=== PATIENT | male | born 1970 | race Caucasian/White ===

== ENCOUNTER 2016-12-24 12:47 | Emergency (ER) | payer OTHER ==
[~2016-12-24] VITALS: Ht 182.9 cm; Wt 136.5 kg
--- NOTE | 2016-12-24 13:09 | EKG ---
[facility] [address] [place] [address] Test Date: 2016-12-24 Test Time: 12:58:57 Pat Name: ETHAN LEON Department: Room: Gender: M Courtroom Reporter: : 1970 Requested By: DIMITRI NAVARRO Order Number: [id number] Reading MD: Measurements Intervals [place] Rate: 96 P: 22 AL: 126 QRS: 3 QRSD: 98 T: 11 QT: 336 QTc: 431 Interpretive Statements SINUS RHYTHM NORMAL ECG RI6.01 Unconfirmed report No previous ECG available for comparison
[2016-12-24 13:26] LABS: BASO % 1 % (0-3); EOS % 0 % (0-3); HEMATOCRIT 42.7 % (39.0-53.0); HEMOGLOBIN 14.7 g/dL (13.0-17.5); LYMPH # 0.6 x10^3/uL (1.0-4.8); LYMPH % 16 % (24-48); MEAN CORPUSCULAR HEMOGLOBIN 31 pg (25-35); MEAN CORPUSCULAR HGB CONC 34 g/dL (31-37); MEAN CORPUSCULAR VOLUME 91 fL (79-100); MONO % 9 % (0-9); NEUT % 73 % (31-73); PLATELET COUNT 145 x10^3/uL (140-400); RED BLOOD COUNT 4.72 x10^6/uL (4.30-5.70); RED CELL DISTRIBUTION WIDTH 12.7 % (11.5-14.5); WHITE BLOOD COUNT 3.9 x10^3/uL (4.0-11.0)
[2016-12-24 13:33] LABS: BILIRUBIN,URINE SMALL (NEG); GLUCOSE,URINE NEGATIVE (NEG); NITRITE,URINE NEGATIVE (NEG); PROTEIN,URINE 30 mg/dL (NEG-TRACE)
[2016-12-24 13:42] LABS: BACTERIA,URINE 0 /HPF (0-FEW); RBC,URINE 0 /HPF (0-2); SQUAMOUS EPITHELIAL CELL,UR MOD /LPF; WBC,URINE OCC /HPF (0-4)
[2016-12-24 13:43] LABS: CALCIUM 8.7 mg/dL (8.5-10.1); CREATININE 0.9 mg/dL (0.7-1.3); GFR 91.3
[2016-12-24 13:51] LABS: ALBUMIN 3.4 g/dL (3.4-5.0); ALBUMIN/GLOBULIN RATIO 0.9 (1.0-1.7); TOTAL BILIRUBIN 0.5 mg/dL (0.2-1.0); TOTAL PROTEIN 7.3 g/dL (6.4-8.2)
--- NOTE | 2016-12-24 15:07 | RAD ---
Chest, 2 views, 12/24/2016: History: Cough The heart size and pulmonary vascularity are normal. No pulmonary infiltrates are seen. There is no evidence of pleural fluid. Mild spurring is present in the spine. IMPRESSION: No acute cardiopulmonary abnormality is detected.
[2016-12-24] MEDS ORDERED: oxyCODONE/APAP 5/325 1 TAB TABLET PO ONE (15:45)
[2016-12-24 15:55] VITALS: BP 142/80
--- NOTE | 2016-12-24 17:48 | ED.ADGEN ---
Past Medical History Past Medical History: No Pertinent History Past Surgical History: Other Additional Past Surgical Histo: SHOULDER Alcohol Use: None Drug Use: None Adult General Chief Complaint Chief Complaint: NEAR SYNCOPE HPI HPI Patient is a 46 year old male presents with arthralgias, myalgias, sweats and malaise. He also reports chronic cough lasting several months. Patient's body aches sweats beginning yesterday. He was briefly seen at [facility] and referred to the emergency department for further evaluation, but decided to wait one day, because he was being stubborn according to the patient and his . Patient's symptoms are gradually improved. He denies feeling lightheaded or dizzy. He denies chest pain palpitations or increased shortness of breath. Reports mild tension-like headache similar to previous headaches. He does not have neck stiffness or rash. He denies extremity weakness, loss of sensation or other neurologic deficits. Patient known insect or tick bites but reports taking exposures. Review of Systems Review of Systems Review symptoms as per history of present illness. All other review symptoms are negative. Current Medications Current Medications Current Medications Medications (Trade) Dose Ordered Sig/Salvador Start Time Stop Time Status Last Admin Dose Admin Oxycodone/ Acetaminophen (Percocet 5/325) 1 tab 1X ONCE 12/24/16 15:45 12/24/16 15:46 DC 12/24/16 15:45 1 TAB Allergies Allergies Allergies Coded Allergies Type Severity Reaction Last Updated Verified Penicillins Allergy Intermediate HIVES 12/24/16 Yes Physical Exam Physical Exam Constitutional: Well developed, well nourished, no acute distress, non-toxic appearance. HENT: Normocephalic, atraumatic, bilateral external ears normal, oropharynx moist, no oral exudates, nose normal. No sinus pain or tenderness. Eyes: PERRLA, EOMI, conjunctiva normal, no discharge. Neck: Normal range of motion, no tenderness, no meningismus. Cardiovascular:Heart rate regular rhythm, no murmur. Lungs & Thorax: Bilateral breath sounds clear to auscultation. Abdomen: Bowel sounds normal, soft, no tenderness. Skin: Warm, dry, no erythema, no rash or petechiae. Back: No tenderness. Extremities: No tenderness. Neurologic: Alert and oriented X 3, normal motor function, normal sensory function, no focal deficits noted. Psychologic: Affect normal, judgement normal, mood normal. Current Patient Data Vital Signs Vital Signs Date Time Temp Pulse Resp B/P (MAP) Pulse Ox O2 Delivery O2 Flow Rate FiO2 12/24/16 15:45 16 100 12/24/16 13:30 92 108/72 (84) Room Air 12/24/16 13:00 98.3 98.3 Lab Values Laboratory Tests Test 12/24/16 13:00 12/24/16 13:15 Urine Collection Type Unknown Urine Color Kerri Urine Clarity Cloudy Urine pH 5.0 Urine Specific [place] >=1.030 Urine Protein 30 mg/dL (NEG-TRACE) Urine Glucose (UA) Negative mg/dL (NEG) Urine Ketones (Stick) Trace mg/dL (NEG) Urine Blood Negative (NEG) Urine Nitrite Negative (NEG) Urine Bilirubin Small (NEG) Urine Urobilinogen Dipstick 1.0 mg/dL (0.2 mg/dL) Urine Leukocyte Esterase Small (NEG) Urine RBC 0 /HPF (0-2) Urine WBC Occ /HPF (0-4) Urine Squamous Epithelial Cells Mod /LPF Urine Bacteria 0 /HPF (0-FEW) Urine Hyaline Casts Moderate /HPF Urine Mucus Marked /LPF White Blood Count 3.9 x10^3/uL (4.0-11.0) L Red Blood Count 4.72 x10^6/uL (4.30-5.70) Hemoglobin 14.7 g/dL (13.0-17.5) Hematocrit 42.7 % (39.0-53.0) Mean Corpuscular Volume 91 fL (79-100) Mean Corpuscular Hemoglobin 31 pg (25-35) Mean Corpuscular Hemoglobin Concent 34 g/dL (31-37) Red Cell Distribution Width 12.7 % (11.5-14.5) Platelet Count 145 x10^3/uL (140-400) Neutrophils (%) (Auto) 73 % (31-73) Lymphocytes (%) (Auto) 16 % (24-48) L Monocytes (%) (Auto) 9 % (0-9) Eosinophils (%) (Auto) 0 % (0-3) Basophils (%) (Auto) 1 % (0-3) Neutrophils # (Auto) 2.9 x10^3uL (1.8-7.7) Lymphocytes # (Auto) 0.6 x10^3/uL (1.0-4.8) L Monocytes # (Auto) 0.4 x10^3/uL (0.0-1.1) Eosinophils # (Auto) 0.0 x10^3/uL (0.0-0.7) Basophils # (Auto) 0.0 x10^3/uL (0.0-0.2) Sodium Level 135 mmol/L (136-145) L Potassium Level 4.0 mmol/L (3.5-5.1) Chloride Level 100 mmol/L (98-107) Carbon Dioxide Level 26 mmol/L (21-32) Anion Gap 9 (6-14) Blood Urea Nitrogen 12 mg/dL (8-26) Creatinine 0.9 mg/dL (0.7-1.3) Estimated GFR (Cockcroft-Gault) 91.3 BUN/Creatinine Ratio 13 (6-20) Glucose Level 120 mg/dL (70-99) H Calcium Level 8.7 mg/dL (8.5-10.1) Total Bilirubin 0.5 mg/dL (0.2-1.0) Aspartate Amino Transferase (AST) 48 U/L (15-37) H Alanine Aminotransferase (ALT) 52 U/L (16-63) Alkaline Phosphatase 72 U/L (46-116) Total Protein 7.3 g/dL (6.4-8.2) Albumin 3.4 g/dL (3.4-5.0) Albumin/Globulin Ratio 0.9 (1.0-1.7) L Laboratory Tests 12/24/16 13:15 Laboratory Tests 12/24/16 13:15 EKG EKG [EKG: Normal sinus rhythm, rate 96, no acute ST-T wave changes, QTC 431.] Radiology/Procedures Radiology/Procedures [Chest x-ray: No acute cardiopulmonary disease per radiology report.] Course & Med Decision Making Course & Med Decision Making Pertinent Labs and Imaging studies reviewed. (See chart for details) [Patient nontoxic does not appear to be acutely ill. Symptoms aren't improved since yesterday. He is afebrile mildly leukopenic with hyponatremia. Chest x- ray does not show evidence of pulmonary infiltrate[place] but denies knowledge of tick bites. Will treat supportively and provide empiric treatment for multiple tick borne illness. PCP follow-up recommended. Return precautions reviewed. Patient verbalizes understanding treatment discharge instructions prior to departure. Dragon Disclaimer Dragon Disclaimer This electronic medical record was generated, in whole or in part, using a voice recognition dictation system. DIMITRI NAVARRO DO Dec 24, 2016 17:48
== END 2016-12-24 16:14 | disposition home or self-care (01) ==
LOC: ER 12:47
DX: M25.50 Pain in unspecified joint (principal); M79.1 Myalgia; R61 Generalized hyperhidrosis; R53.81 Other malaise; R05 Cough; R51 Headache; D72.819 Decreased white blood cell count, unspecified; E87.1 Hypo-osmolality and hyponatremia; Z88.0 Allergy status to penicillin
CPT/HCPCS: 36415; 71020; 80053; 81001; 85027; 87086; 93005; 99285-25

== ENCOUNTER 2021-11-20 00:06 | Inpatient (IN) | payer OTHER ==
[~2021-11-20] VITALS: Ht 182.9 cm; Wt 102.3 kg
[2021-11-20] VITALS (8 sets, daily range): BP systolic 107–131; BP diastolic 62–82
[2021-11-20] MEDS ORDERED: PHEN37.53 PO (00:53)
[2021-11-20] MEDS ORDERED: FLUO40CA2 PO ×3 (00:53→16:07)
[2021-11-20] MEDS ORDERED: ONDANSETRON PF 4 MG/2 ML VIAL. IVP ONE ×2 (01:00→02:30)
[2021-11-20] MEDS ORDERED: IV RINGERS,LACTATED 1000ML 1,000 ML IV SCH ×2 (01:00→11:45)
[2021-11-20] MEDS ORDERED: MORPHINE SULFATE 4 MG/ML INJ. IVP ONE (01:00)
[2021-11-20 01:33] LABS: BASO % 0 % (0-3); EOS # 0.4 x10^3/uL (0.0-0.7); EOS % 4 % (0-3); HEMATOCRIT 45.7 % (39.0-53.0); HEMOGLOBIN 15.8 g/dL (13.0-17.5); LYMPH # 1.3 x10^3/uL (1.0-4.8); LYMPH % 15 % (24-48); MEAN CORPUSCULAR HEMOGLOBIN 32 pg (25-35); MEAN CORPUSCULAR HGB CONC 35 g/dL (31-37); MEAN CORPUSCULAR VOLUME 92 fL (79-100); MONO # 0.7 x10^3/uL (0.0-1.1); MONO % 8 % (0-9); NEUT # 6.5 x10^3/uL (1.8-7.7); NEUT % 73 % (31-73); PLATELET COUNT 220 x10^3/uL (140-400); RED BLOOD COUNT 4.96 x10^6/uL (4.30-5.70); RED CELL DISTRIBUTION WIDTH 13.3 % (11.5-14.5); WHITE BLOOD COUNT 8.9 x10^3/uL (4.0-11.0)
[2021-11-20 01:51] LABS: CALCIUM 9.7 mg/dL (8.5-10.1); GFR 79.1; POTASSIUM 4.3 mmol/L (3.5-5.1)
[2021-11-20 01:56] LABS: ALBUMIN 4.1 g/dL (3.4-5.0); ALBUMIN/GLOBULIN RATIO 1.2 (1.0-1.7); TOTAL BILIRUBIN 0.5 mg/dL (0.2-1.0); TOTAL PROTEIN 7.5 g/dL (6.4-8.2)
--- NOTE | 2021-11-20 02:12 | RAD ---
Clinical History: Right upper quadrant pain Technique: Sonographic examination of the right upper quadrant of the abdomen was performed and mult iple static images were obtained. Comparison: none Findings: Liver: The majority of the liver is visualized and there is no focal abnormality. There is increased echogenicity and attenuation of sound which further limits ultrasound sensitivity for possible solid liver lesion. Common bile duct: Appears normal and measures 5.4 mm in diameter. Gallbladder: Distended with stones and sludge and moderate 1 cm wall thickening and mild surrounding fluid and tenderness. Pancreas: is not well visualized due to overlying bowel gas. Right kidney: appears normal and measures 11 cm in length. Main Portal Vein: Normal hepatopedal flow Aorta: normal IVC: normal Impression: 1. Cholelithiasis and acute cholecystitis. 2. Fatty location of the liver. Electronically signed by: Samir Lambert III, MD (11/20/2021 2:10 AM) [facility]
[2021-11-20] MEDS ORDERED: CIPROFLOXACIN 400MG PREMIX 200 ML IV ONE (02:30)
--- NOTE | 2021-11-20 04:35 | PHYS DOC ---
Past Medical History Past Medical History: No Pertinent History Past Surgical History: Other Additional Past Surgical Histo: GASTRIC SLEEVE, SHOULDER REPAIR Smoking Status: Never Smoker Alcohol Use: None Drug Use: None General Adult EDM: Chief Complaint: GI PROBLEM HPI: HPI: Patient is a 51 year oldmale with a history of a gastric sleeve who presents to the emergency department today with complaints of right upper quadrant pain. Patient states that he was at a friend's house eating a barbecue dinner tonight when he developed right upper quadrant pain around 6:00. He describes the pain as sharp. He states it radiates periumbilically. He has some associated nausea but no vomiting. There are no palliative or provocative factors for the pain. He states the pain is about an 8 out of 10 and has been constant since it began. He denies any blood in the stools or black tarry stools. Review of Systems: Review of Systems: Constitutional: Denies fever or chills. [] Eyes: Denies change in visual acuity. [] HENT: Denies nasal congestion or sore throat. [] Respiratory: Denies cough or shortness of breath. [] Cardiovascular: Denies chest pain or edema. [] GI: Denies bloody stools or diarrhea. [] : Denies dysuria. [] Musculoskeletal: Denies back pain or joint pain. [] Integument: Denies rash. [] Neurologic: Denies headache, focal weakness or sensory changes. [] Endocrine: Denies polyuria or polydipsia. [] Lymphatic: Denies swollen glands. [] Psychiatric: Denies depression or anxiety. [] Heart Score: C/O Chest Pain: No Family History: Family History: Noncontributory Current Medications: Current Medications Medications (Trade) Dose Ordered Sig/Salvador Start Time Stop Time Status Last Admin Dose Admin Ciprofloxacin/ Dextrose 200 ml @ 200 mls/hr 1X ONCE 11/20/21 02:30 11/20/21 03:29 DC 11/20/21 03:19 200 MLS/HR Metronidazole 100 ml @ 100 mls/hr 1X ONCE 11/20/21 02:30 11/20/21 03:29 DC 11/20/21 02:30 100 MLS/HR Morphine Sulfate (Morphine Sulfate) 4 mg 1X ONCE 11/20/21 01:00 11/20/21 01:01 DC 11/20/21 01:18 4 MG Ondansetron HCl (Zofran) 4 mg 1X ONCE 11/20/21 02:30 11/20/21 02:31 DC 11/20/21 02:18 4 MG Ringer's Solution 1,000 ml @ 1,000 mls/hr Q1H 11/20/21 01:00 11/20/21 01:59 DC 11/20/21 01:00 1,000 MLS/HR Allergies: Allergies: Allergies Coded Allergies Type Severity Reaction Last Updated Verified Penicillins Allergy Intermediate HIVES 12/24/16 Yes Physical Exam: PE: Constitutional: Well developed, well nourished, no acute distress, non-toxic appearance. [] HENT: Normocephalic, atraumatic, bilateral external ears normal, oropharynx moist, no oral exudates, nose normal. [] Eyes: PERRLA, EOMI, conjunctiva normal, no discharge. [] Neck: Normal range of motion, no tenderness, supple, no stridor. [] Cardiovascular:Heart rate regular rhythm, no murmur [] Lungs & Thorax: Bilateral breath sounds clear to auscultation [] Abdomen: Right upper quadrant tender to palpation. There is a positive Mayfield sign. Bowel sounds normal, soft, no masses, no pulsatile masses. [] Skin: Warm, dry, no erythema, no rash. [] Back: No tenderness, no CVA tenderness. [] Extremities: No tenderness, no cyanosis, no clubbing, ROM intact, no edema. [] Neurologic: Alert and oriented X 3, normal motor function, normal sensory function, no focal deficits noted. [] Psychologic: Affect normal, judgement normal, mood normal. [] Current Patient Data: Labs: Laboratory Tests Test 11/20/21 01:22 11/20/21 02:29 White Blood Count 8.9 x10^3/uL (4.0-11.0) Red Blood Count 4.96 x10^6/uL (4.30-5.70) Hemoglobin 15.8 g/dL (13.0-17.5) Hematocrit 45.7 % (39.0-53.0) Mean Corpuscular Volume 92 fL (79-100) Mean Corpuscular Hemoglobin 32 pg (25-35) Mean Corpuscular Hemoglobin Concent 35 g/dL (31-37) Red Cell Distribution Width 13.3 % (11.5-14.5) Platelet Count 220 x10^3/uL (140-400) Neutrophils (%) (Auto) 73 % (31-73) Lymphocytes (%) (Auto) 15 % (24-48) L Monocytes (%) (Auto) 8 % (0-9) Eosinophils (%) (Auto) 4 % (0-3) H Basophils (%) (Auto) 0 % (0-3) Neutrophils # (Auto) 6.5 x10^3/uL (1.8-7.7) Lymphocytes # (Auto) 1.3 x10^3/uL (1.0-4.8) Monocytes # (Auto) 0.7 x10^3/uL (0.0-1.1) Eosinophils # (Auto) 0.4 x10^3/uL (0.0-0.7) Basophils # (Auto) 0.0 x10^3/uL (0.0-0.2) Sodium Level 143 mmol/L (136-145) Potassium Level 4.3 mmol/L (3.5-5.1) Chloride Level 106 mmol/L (98-107) Carbon Dioxide Level 25 mmol/L (21-32) Anion Gap 12 (6-14) Blood Urea Nitrogen 28 mg/dL (8-26) H Creatinine 1.0 mg/dL (0.7-1.3) Estimated GFR (Cockcroft-Gault) 79.1 BUN/Creatinine Ratio 28 (6-20) H Glucose Level 111 mg/dL (70-99) H Calcium Level 9.7 mg/dL (8.5-10.1) Total Bilirubin 0.5 mg/dL (0.2-1.0) Aspartate Amino Transferase (AST) 18 U/L (15-37) Alanine Aminotransferase (ALT) 34 U/L (16-63) Alkaline Phosphatase 72 U/L (46-116) Troponin I High Sensitivity 7 ng/L (4-75) Total Protein 7.5 g/dL (6.4-8.2) Albumin 4.1 g/dL (3.4-5.0) Albumin/Globulin Ratio 1.2 (1.0-1.7) Lipase 96 U/L (73-393) SARS-CoV-2 Antigen (Rapid) Negative (NEGATIVE) Laboratory Tests 11/20/21 01:22 Laboratory Tests 11/20/21 01:22 Vital Signs: Vital Signs Date Time Temp Pulse Resp B/P (MAP) Pulse Ox O2 Delivery O2 Flow Rate FiO2 11/20/21 01:18 16 97 Room Air 11/20/21 00:31 97.8 54 157/98 (117) 97.8 EKG: EKG: EKG shows normal sinus rhythm with a rate 56. Intervals and axis are normal. There is no evidence of any acute ischemia or infarction. EKG was read interpreted by myself. [] Radiology/Procedures: Radiology/Procedures: ROCEDURE: ABDOMEN LTD Clinical History: Right upper quadrant pain Technique: Sonographic examination of the right upper quadrant of the abdomen was performed and multiple static images were obtained. Comparison: none Findings: Liver: The majority of the liver is visualized and there is no focal abnormality. There is increased echogenicity and attenuation of sound which further limits ultrasound sensitivity for possible solid liver lesion. Common bile duct: Appears normal and measures 5.4 mm in diameter. Gallbladder: Distended with stones and sludge and moderate 1 cm wall thickening and mild surrounding fluid and tenderness. Pancreas: is not well visualized due to overlying bowel gas. Right kidney: appears normal and measures 11 cm in length. Main Portal Vein: Normal hepatopedal flow Aorta: normal IVC: normal Impression: 1. Cholelithiasis and acute cholecystitis. 2. Fatty location of the liver. Electronically signed by: Samir Lambert III, MD (11/20/2021 2:10 AM) [facility] Course & Med Decision Making: Course & Med Decision Making Patient remained hemodynamically stable in the emergency department. He was evaluated at the bedside with a physical exam. His pain was treated with IV morphine. He was given IV Zofran for his nausea. Basic labs obtained and are unremarkable. Right upper quadrant ultrasound shows evidence of cholelithiasis and acute cholecystitis. Specifically his gallbladder wall is thickened to 1 cm. He has pericholecystic fluid, stones and sludge, as well as a positive sonographic Mayfield sign. Given these findings I have discussed him with the surgeon Dr. Louise. Patient will be admitted to the hospitalist service with plans for the operating theater later today. Patient was given IV fluids here in the emergency department as well as Cipro and Flagyl. Dragon Disclaimer: Karan Disclaimer: This electronic medical record was generated, in whole or in part, using a voice recognition dictation system. Departure Departure Condition: STABLE Referrals: DAY GANT (PCP) YANI SALINAS MD November 20, 2021 04:35
[2021-11-20] MEDS ORDERED: ACETAMINOPHEN 325 MG TABLET. PO PRN (10:15)
[2021-11-20] MEDS ORDERED: CALCIUM CARBONATE 500 MG TAB.CHEW PO PRN (10:15)
[2021-11-20] MEDS ORDERED: ELECTROLYTE (NON-ICU) PROTOCOL. MC PRN (10:15)
[2021-11-20] MEDS ORDERED: ONDANSETRON PF 4 MG/2 ML VIAL. IVP PRN (10:15)
[2021-11-20] MEDS ORDERED: MORPHINE SULFATE 2 MG/ML INJ. IV PRN ×2 (10:15)
[2021-11-20] MEDS ORDERED: SEVOFLURANE 31 TO 60 MINUTES. IH ONE (11:17)
[2021-11-20] MEDS ORDERED: PROPOFOL 10 MG/ML (20ML) VIAL. IV ONE (11:17)
[2021-11-20] MEDS ORDERED: NEOSTIGMINE METHYLSULFATE 5 MG/5 ML SYRINGE. ONE (11:17)
[2021-11-20] MEDS ORDERED: LIDOCAINE 1% PF 5 ML VIAL. ONE (11:17)
[2021-11-20] MEDS ORDERED: ONDANSETRON PF 4 MG/2 ML VIAL. ONE (11:17)
[2021-11-20] MEDS ORDERED: DEXAMETHASONE SOD PHOS 4 MG/ML VIAL ONE (11:17)
[2021-11-20] MEDS ORDERED: GLYCOPYRROLATE 1 MG/5 ML VIAL. ONE ×2 (11:18→13:21)
[2021-11-20] MEDS ORDERED: MIDAZOLAM HCL/PF 2 MG/2 ML VIAL. ONE (11:18)
[2021-11-20] MEDS ORDERED: fentaNYL PF VIAL 100 MCG/2 ML VIAL ONE (11:18)
[2021-11-20] MEDS ORDERED: ROCURONIUM 50 MG/5 ML VIAL. ONE ×2 (11:18→12:59)
[2021-11-20] MEDS ORDERED: IOHEXOL 300 MG/ML 50 ML VIAL. ONE (11:20)
[2021-11-20] MEDS ORDERED: SURGICEL HEMOSTAT 4X8 EACH. ONE (11:20)
[2021-11-20] MEDS ORDERED: BUPIVACAINE-EPI 0.5% 30 ML VIAL KIT. ONE (11:20)
[2021-11-20] MEDS ORDERED: MORPHINE SULFATE 2 MG/ML INJ. IVP PRN (11:45)
[2021-11-20] MEDS ORDERED: PROCHLORPERAZINE 10 MG/2 ML VIAL. IVP PRN (11:45)
[2021-11-20] MEDS ORDERED: HYDROmorphone 2 MG/ML INJ. IVP PRN (11:45)
[2021-11-20] MEDS ORDERED: fentaNYL PF VIAL 100 MCG/2 ML VIAL IVP PRN ×2 (11:45)
--- NOTE | 2021-11-20 12:10 | PDOC1 ---
History and Physical Date of Service: DOS: DATE: 11/20/21 TIME: 12:05 Chief Complaint: Chief Complain: abd pain History of Present Illness: HPI: Patient 51-year-old male presented to the emergency room overnight due to right upper quadrant pain. Patient has a history of gastric sleeve procedure. Was at a friend's house yesterday today eating dinner with sudden onset of right upper quadrant pain. Said pain was very sharp and was not able to control it at home. Pain has been constant since it started. On presentation to the emergency room patient provided IV pain control. Found to have acute cholecystitis. Surgery consult planning for cholecystectomy Past Medical/Surgical History: PMH/PSH: Past Medical History: MDD, anxiety Additional Past Surgical Histo: GASTRIC SLEEVE, SHOULDER REPAIR Smoking Status: Never Smoker Alcohol Use: None Drug Use: None Allergies: Allergies: Coded Allergies: Penicillins (Verified Allergy, Intermediate, HIVES, 12/24/16) Family History: Family History: no known per patient Current Medications: Current Medications Current Medications Ringer's Solution 1,000 ml @ 1,000 mls/hr Q1H IV Last administered on 11/20/21at 01:00; Start 11/20/21 at 01:00; Stop 11/20/21 at 01:59; Status DC Ondansetron HCl (Zofran) 4 mg 1X ONCE IVP Last administered on 11/20/21at 01:18; Start 11/20/21 at 01:00; Stop 11/20/21 at 01:01; Status DC Morphine Sulfate (Morphine Sulfate) 4 mg 1X ONCE IVP Last administered on 11/20at 01:18; Start 11/20/21 at 01:00; Stop 11/20/21 at 01:01; Status DC Ondansetron HCl (Zofran) 4 mg 1X ONCE IVP Last administered on 11/20/21at 02:18; Start 11/20/21 at 02:30; Stop 11/20/21 at 02:31; Status DC Ciprofloxacin/ Dextrose 200 ml @ 200 mls/hr 1X ONCE IV Last administered on 11/20/21at 03:19; Start 11/20/21 at 02:30; Stop 11/20/21 at 03:29; Status DC Metronidazole 100 ml @ 100 mls/hr 1X ONCE IV Last administered on 11/20/21at 02:30; Start 11/20/21 at 02:30; Stop 11/20/21 at 03:29; Status DC Fluoxetine HCl (PROzac) 40 mg DAILY PO ; Start 11/21/21 at 09:00 Ondansetron HCl (Zofran) 4 mg PRN Q6HRS PRN IVP NAUSEA/VOMITING; Start 11/20/21 at 10:15 Calcium Carbonate/ Glycine (Tums) 500 mg PRN Q3HRS PRN PO UPSET STOMACH; Start 11/20/21 at 10:15 Info (Non-Icu Electrolyte Protocol) 1 ea PRN DAILY PRN MC SEE COMMENTS; Start 11/20/21 at 10:15 Morphine Sulfate (Morphine Sulfate) 1 mg PRN Q1HR PRN IV PAIN; Start 11/20/21 at 10:15 Morphine Sulfate (Morphine Sulfate) 2 mg PRN Q1HR PRN IV PAIN; Start 11/20/21 at 10:15 Acetaminophen (Tylenol) 650 mg PRN Q6HRS PRN PO Headaches, Temp > 101.5F; Start 11/20/21 at 10:15 Senna/Docusate Sodium (Senna Plus) 1 tab BID PO ; Start 11/20/21 at 21:00 Propofol (Diprivan) 200 mg STK-MED ONCE IV ; Start 11/20/21 at 11:17; Stop 11/20/21 at 11:18; Status DC Lidocaine HCl (Xylocaine-Mpf 1% 5ml Vial) 5 ml STK-MED ONCE .ROUTE ; Start 11/20/21 at 11:17; Stop 11/20/21 at 11:18; Status DC Ondansetron HCl (Zofran) 4 mg STK-MED ONCE .ROUTE ; Start 11/20/21 at 11:17; Stop 11/20/21 at 11:18; Status DC Dexamethasone Sodium Phosphate (Decadron) 4 mg STK-MED ONCE .ROUTE ; Start 11/20/21 at 11:17; Stop 11/20/21 at 11:18; Status DC Sevoflurane (Ultane) 30 ml STK-MED ONCE IH ; Start 11/20/21 at 11:17; Stop 11/20/21 at 11:18; Status DC Neostigmine Cotati (Neostigmine Methylsulfate) 5 mg STK-MED ONCE .ROUTE ; Start 11/20/21 at 11:17; Stop 11/20/21 at 11:18; Status DC Rocuronium Cotati (Zemuron) 50 mg STK-MED ONCE .ROUTE ; Start 11/20/21 at 11:18; Stop 11/20/21 at 11:18; Status DC Fentanyl Citrate (Fentanyl 2ml Vial) 100 mcg STK-MED ONCE .ROUTE ; Start 11/20/21 at 11:18; Stop 11/20/21 at 11:18; Status DC Midazolam HCl (Versed) 2 mg STK-MED ONCE .ROUTE ; Start 11/20/21 at 11:18; Stop 11/20/21 at 11:18; Status DC Glycopyrrolate (Robinul) 1 mg STK-MED ONCE .ROUTE ; Start 11/20/21 at 11:18; Stop 11/20/21 at 11:18; Status DC Bupivacaine HCl/ Epinephrine Bitart (Sensorcain-Epi 0.5% Kit) 30 ml STK-MED ONCE .ROUTE ; Start 11/20/21 at 11:20; Stop 11/20/21 at 11:20; Status DC Iohexol (Omnipaque 300 Mg/ml) 50 ml STK-MED ONCE .ROUTE ; Start 11/20/21 at 11:20; Stop 11/20/21 at 11:20; Status DC Cellulose (Surgicel Hemostat 4x8) 1 each STK-MED ONCE .ROUTE ; Start 11/20/21 at 11:20; Stop 11/20/21 at 11:20; Status DC Fentanyl Citrate (Fentanyl 2ml Vial) 25 mcg PRN Q5MIN PRN IVP MILD PAIN 1-3; Start 11/20/21 at 11:45; Stop 11/20/21 at 20:00 Fentanyl Citrate (Fentanyl 2ml Vial) 50 mcg PRN Q5MIN PRN IVP MODERATE PAIN 4- 6; Start 11/20/21 at 11:45; Stop 11/20/21 at 20:00 Morphine Sulfate (Morphine Sulfate) 1 mg PRN Q10MIN PRN IVP SEVERE PAIN 7-10; Start 11/20/21 at 11:45; Stop 11/20/21 at 20:00 Ringer's Solution 1,000 ml @ 30 mls/hr Q24H IV Last administered on 5/30/22at 11:45; Start 11/20/21 at 11:45; Stop 11/20/21 at 23:44 Hydromorphone HCl (Dilaudid) 0.5 mg PRN Q10MIN PRN IVP SEVERE PAIN 7-10, 2nd CHOICE; Start 11/20/21 at 11:45; Stop 11/20/21 at 20:00 Prochlorperazine Edisylate (Compazine) 5 mg PACU PRN PRN IVP NAUSEA, MRX1; Start 11/20/21 at 11:45; Stop 11/20/21 at 20:00 Active Scripts Active Reported Fluoxetine Hcl 40 Mg Capsule 1 Cap PO DAILY Phentermine Hcl 37.5 Mg Capsule 1 Cap PO DAILYWBKFT ROS: Review of Systems Review of System Unless noted in HPI 14 point review of systems was negative Physical Exam: Vital Signs: Vital Signs Date Time Temp Pulse Resp B/P (MAP) Pulse Ox O2 Delivery O2 Flow Rate FiO2 11/20/21 11:00 98.2 68 18 107/71 (83) 97 Room Air 98.2 Physcial Exam: GEN: No apparent distress. Alert and oriented HEENT: Normal cephalic, atraumatic, external auditory canals are patent EYES: Extraocular muscles are intact, pupil are equally round and reactive to light and accommodation MUSCULOSKELETAL: Well developed , well nourished, good range of motion ENDOCRINE: No thyromegaly was palpated LYMPHATICS: No cervical chain or axillary nodes were noted HEMATOPOIETIC: No bruising NECK: Supple, no JVD, no thyromegaly was noted LUNGS: Clear to auscultation in all lung redd without rhonchi or wheezing HEART: RRR, S!, S2 present. Peripheral pulses intact, no obvious murmurs noted ABDOMEN: Right upper quadrant tenderness diffusely mildly tender EXTREMITIES: Without clubbing, cyanosis, or edema. Pedal pulses intact. Negative Homans sign NEUROLOGIC: Normal speech and tone. A&O x 3, moves all extremities, no obvious focal deficits PSYCHIATRIC: Normal affect, normal mood. Stable SKIN: No ulcerations or rashes, good skin turgor, no jaundice VASCULAR: Good capillary refill, neurovascular bundle appears to be intact Labs: Labs: Laboratory Tests Test 11/20/21 01:22 11/20/21 02:29 White Blood Count 8.9 x10^3/uL (4.0-11.0) Red Blood Count 4.96 x10^6/uL (4.30-5.70) Hemoglobin 15.8 g/dL (13.0-17.5) Hematocrit 45.7 % (39.0-53.0) Mean Corpuscular Volume 92 fL (79-100) Mean Corpuscular Hemoglobin 32 pg (25-35) Mean Corpuscular Hemoglobin Concent 35 g/dL (31-37) Red Cell Distribution Width 13.3 % (11.5-14.5) Platelet Count 220 x10^3/uL (140-400) Neutrophils (%) (Auto) 73 % (31-73) Lymphocytes (%) (Auto) 15 % (24-48) Monocytes (%) (Auto) 8 % (0-9) Eosinophils (%) (Auto) 4 % (0-3) Basophils (%) (Auto) 0 % (0-3) Neutrophils # (Auto) 6.5 x10^3/uL (1.8-7.7) Lymphocytes # (Auto) 1.3 x10^3/uL (1.0-4.8) Monocytes # (Auto) 0.7 x10^3/uL (0.0-1.1) Eosinophils # (Auto) 0.4 x10^3/uL (0.0-0.7) Basophils # (Auto) 0.0 x10^3/uL (0.0-0.2) Sodium Level 143 mmol/L (136-145) Potassium Level 4.3 mmol/L (3.5-5.1) Chloride Level 106 mmol/L (98-107) Carbon Dioxide Level 25 mmol/L (21-32) Anion Gap 12 (6-14) Blood Urea Nitrogen 28 mg/dL (8-26) Creatinine 1.0 mg/dL (0.7-1.3) Estimated GFR (Cockcroft-Gault) 79.1 BUN/Creatinine Ratio 28 (6-20) Glucose Level 111 mg/dL (70-99) Calcium Level 9.7 mg/dL (8.5-10.1) Total Bilirubin 0.5 mg/dL (0.2-1.0) Aspartate Amino Transf (AST/SGOT) 18 U/L (15-37) Alanine Aminotransferase (ALT/SGPT) 34 U/L (16-63) Alkaline Phosphatase 72 U/L (46-116) Troponin I High Sensitivity 7 ng/L (4-75) Total Protein 7.5 g/dL (6.4-8.2) Albumin 4.1 g/dL (3.4-5.0) Albumin/Globulin Ratio 1.2 (1.0-1.7) Lipase 96 U/L (73-393) SARS-CoV-2 Antigen (Rapid) Negative (NEGATIVE) Laboratory Tests Test 11/20/21 01:22 11/20/21 02:29 White Blood Count 8.9 x10^3/uL (4.0-11.0) Red Blood Count 4.96 x10^6/uL (4.30-5.70) Hemoglobin 15.8 g/dL (13.0-17.5) Hematocrit 45.7 % (39.0-53.0) Mean Corpuscular Volume 92 fL (79-100) Mean Corpuscular Hemoglobin 32 pg (25-35) Mean Corpuscular Hemoglobin Concent 35 g/dL (31-37) Red Cell Distribution Width 13.3 % (11.5-14.5) Platelet Count 220 x10^3/uL (140-400) Neutrophils (%) (Auto) 73 % (31-73) Lymphocytes (%) (Auto) 15 % (24-48) Monocytes (%) (Auto) 8 % (0-9) Eosinophils (%) (Auto) 4 % (0-3) Basophils (%) (Auto) 0 % (0-3) Neutrophils # (Auto) 6.5 x10^3/uL (1.8-7.7) Lymphocytes # (Auto) 1.3 x10^3/uL (1.0-4.8) Monocytes # (Auto) 0.7 x10^3/uL (0.0-1.1) Eosinophils # (Auto) 0.4 x10^3/uL (0.0-0.7) Basophils # (Auto) 0.0 x10^3/uL (0.0-0.2) Sodium Level 143 mmol/L (136-145) Potassium Level 4.3 mmol/L (3.5-5.1) Chloride Level 106 mmol/L (98-107) Carbon Dioxide Level 25 mmol/L (21-32) Anion Gap 12 (6-14) Blood Urea Nitrogen 28 mg/dL (8-26) Creatinine 1.0 mg/dL (0.7-1.3) Estimated GFR (Cockcroft-Gault) 79.1 BUN/Creatinine Ratio 28 (6-20) Glucose Level 111 mg/dL (70-99) Calcium Level 9.7 mg/dL (8.5-10.1) Total Bilirubin 0.5 mg/dL (0.2-1.0) Aspartate Amino Transf (AST/SGOT) 18 U/L (15-37) Alanine Aminotransferase (ALT/SGPT) 34 U/L (16-63) Alkaline Phosphatase 72 U/L (46-116) Troponin I High Sensitivity 7 ng/L (4-75) Total Protein 7.5 g/dL (6.4-8.2) Albumin 4.1 g/dL (3.4-5.0) Albumin/Globulin Ratio 1.2 (1.0-1.7) Lipase 96 U/L (73-393) SARS-CoV-2 Antigen (Rapid) Negative (NEGATIVE) Assessment/Plan Assessment/Plan Acute cholecystitis. History anxiety depression gastric sleeve -Admit to [facility] -Surgery consult looks like planning for cholecystectomy today -As needed pain control -Advance diet as tolerated after surgery -Home meds reordered -Other than preop antibiotics can hold off any further abx from my perspective Justifications for Admission Other Justification DEBBIE WHITLOCK MD November 20, 2021 12:10
[2021-11-20] MEDS ORDERED: HYDROmorphone 2 MG/ML INJ. ONE (12:59)
--- NOTE | 2021-11-20 13:21 | PDOC4 ---
Operative Note Operative Note Operative Note: Preoperative Diagnosis: Calculus cholecystitis Postoperative Diagnosis: Same Procedure: Laparoscopic cholecystectomy with intraoperative cholangiogram Surgeons: Dani Lease Operator: Kosta MORALES Anesthesia: Gen. Estimated Blood Loss: 10 mL Specimen: Gallbladder to pathology Drains: None Complications: None Indications: The patient is a 51-year-old male who was admitted with abdominal pain. His evaluation is consistent with calculus cholecystitis. Surgical treatment was offered by means of a laparoscopic cholecystectomy. The risks of surgery were discussed which include bleeding, infection, bile duct injury, bile leak, pain, the potential for additional surgeries or procedures. The patient understands and would like to proceed. Description: The patient was taken to the operating room and laid supine on the operating table. General anesthesia was performed. The abdomen was prepped with ChloraPrep and draped in a standard surgical fashion. A small infraumbilical incision was made with a scalpel. The Veress needle was then inserted and a pneumoperitoneum was then created. A 5 mm trocar was then inserted and the laparoscope was introduced. In the upper midabdomen an 11 mm trocar was inserted and in the right upper quadrant two 5 mm trochars were inserted. The gallbladder was retracted cephalad. The cystic duct was dissected free from surrounding tissues. There was an artery readily seen lateral to the cystic duct. This was doubly clipped and divided close to the gallbladder. One clip was then placed on the cystic duct near the gallbladder junction. The plan was for a routine cholangiogram. An opening was made in the duct and a cholangiocatheter placed within and secured with a clip. Using contrast dye and fluoroscopy an intraoperative cholangiogram was attempted. There was extravasation of the saline with mild dilation of the duct consistent with a distal cystic duct obstruction from a stone. We made attempts to manually milk the cystic duct. We dissected the cystic duct distally to facilitate this. However no stone was readily identified. After repeated attempts we elected to forego the cholangiogram so as to not injure any of the major biliary ducts. The clip and catheter were then withdrawn. Three clips were placed on the cystic duct and it was divided. The gallbladder was then mobilized away from the liver with cautery. The umbilical 5 millimeter trocar was exchanged for an 11 millimeter trocar. The gallbladder was then placed in an endoscopic bag and extracted at the umbilical trocar site. The fascia there was closed with an 0 Vicryl suture and infiltrated with 0.5% marcaine. All blood and irrigation fluid was suctioned and hemostasis was good. The remaining ports were removed and the pneumoperitoneum was relieved. The skin incisions were closed using 4-0 Monocryl suture. Steri-Strips and dressings were then applied. The patient tolerated the procedure well and was sent to the recovery room in stable condition. At the end of the case all counts were correct. CLIFF STARKS MD November 20, 2021 13:20
--- NOTE | 2021-11-20 13:29 | PDOC2 ---
CONSULT Date of Consult Date of Consult DATE: 11/20/21 TIME: 13:27 History of Present Illness Reason for Visit: The patient is a 51-year-old male who reported to the emergency department due to abdominal pain. Last evening he noticed pain after eating dinner. He had a reaction which included sweating and nausea. The pain was located in the right upper quadrant with minimal radiation. The pain was described as sharp and persistent. After midnight he decided to report to the ER. The evaluation is consistent with calculus cholecystitis. Past Medical History Past Medical History Morbid obesity status post bariatric surgery Past Surgical History Past Surgical History Laparoscopic gastric sleeve Social History No Current Medications Current Medications Current Medications Ringer's Solution 1,000 ml @ 1,000 mls/hr Q1H IV Last administered on 11/20/21at 01:00; Start 11/20/21 at 01:00; Stop 11/20/21 at 01:59; Status DC Ondansetron HCl (Zofran) 4 mg 1X ONCE IVP Last administered on 11/20/21at 01:18; Start 11/20/21 at 01:00; Stop 11/20/21 at 01:01; Status DC Morphine Sulfate (Morphine Sulfate) 4 mg 1X ONCE IVP Last administered on 11/20/21at 01:18; Start 11/20/21 at 01:00; Stop 11/20/21 at 01:01; Status DC Ondansetron HCl (Zofran) 4 mg 1X ONCE IVP Last administered on 11/20/21at 02:18; Start 11/20/21 at 02:30; Stop 11/20/21 at 02:31; Status DC Ciprofloxacin/ Dextrose 200 ml @ 200 mls/hr 1X ONCE IV Last administered on 11/20/21at 03:19; Start 11/20/21 at 02:30; Stop 11/20/21 at 03:29; Status DC Metronidazole 100 ml @ 100 mls/hr 1X ONCE IV Last administered on 11/20/21at 02:30; Start 11/20/21 at 02:30; Stop 11/20/21 at 03:29; Status DC Fluoxetine HCl (PROzac) 40 mg DAILY PO ; Start 11/21/21 at 09:00 Ondansetron HCl (Zofran) 4 mg PRN Q6HRS PRN IVP NAUSEA/VOMITING; Start 11/20/21 at 10:15 Calcium Carbonate/ Glycine (Tums) 500 mg PRN Q3HRS PRN PO UPSET STOMACH; Start 11/20/21 at 10:15 Info (Non-Icu Electrolyte Protocol) 1 ea PRN DAILY PRN MC SEE COMMENTS; Start 11/20/21 at 10:15 Morphine Sulfate (Morphine Sulfate) 1 mg PRN Q1HR PRN IV PAIN; Start 11/20/21 at 10:15 Morphine Sulfate (Morphine Sulfate) 2 mg PRN Q1HR PRN IV PAIN; Start 11/20/21 at 10:15 Acetaminophen (Tylenol) 650 mg PRN Q6HRS PRN PO Headaches, Temp > 101.5F; Start 11/20/21 at 10:15 Senna/Docusate Sodium (Senna Plus) 1 tab BID PO ; Start 11/20/21 at 21:00 Propofol (Diprivan) 200 mg STK-MED ONCE IV ; Start 11/20/21 at 11:17; Stop 11/20/21 at 11:18; Status DC Lidocaine HCl (Xylocaine-Mpf 1% 5ml Vial) 5 ml STK-MED ONCE .ROUTE ; Start 11/20/21 at 11:17; Stop 11/20/21 at 11:18; Status DC Ondansetron HCl (Zofran) 4 mg STK-MED ONCE .ROUTE ; Start 11/20/21 at 11:17; Stop 11/20/21 at 11:18; Status DC Dexamethasone Sodium Phosphate (Decadron) 4 mg STK-MED ONCE .ROUTE ; Start 11/20/21 at 11:17; Stop 11/20/21 at 11:18; Status DC Sevoflurane (Ultane) 30 ml STK-MED ONCE IH ; Start 11/20/21 at 11:17; Stop 11/20/21 at 11:18; Status DC Neostigmine [place] (Neostigmine Methylsulfate) 5 mg STK-MED ONCE .ROUTE ; Start 11/20/21 at 11:17; Stop 11/20/21 at 11:18; Status DC Rocuronium [place] (Zemuron) 50 mg STK-MED ONCE .ROUTE ; Start 11/20/21 at 11:18; Stop 11/20/21 at 11:18; Status DC Fentanyl Citrate (Fentanyl 2ml Vial) 100 mcg STK-MED ONCE .ROUTE ; Start 11/20/21 at 11:18; Stop 11/20/21 at 11:18; Status DC Midazolam HCl (Versed) 2 mg STK-MED ONCE .ROUTE ; Start 11/20/21 at 11:18; Stop 11/20/21 at 11:18; Status DC Glycopyrrolate (Robinul) 1 mg STK-MED ONCE .ROUTE ; Start 11/20/21 at 11:18; Stop 11/20/21 at 11:18; Status DC Bupivacaine HCl/ Epinephrine Bitart (Sensorcain-Epi 0.5% Kit) 30 ml STK-MED ONCE .ROUTE Last administered on 11/20/21at 12:18; Start 11/20/21 at 11:20; Stop 11/20/21 at 11:20; Status DC Iohexol (Omnipaque 300 Mg/ml) 50 ml STK-MED ONCE .ROUTE ; Start 11/20/21 at 11:20; Stop 11/20/21 at 11:20; Status DC Cellulose (Surgicel Hemostat 4x8) 1 each STK-MED ONCE .ROUTE Last administered on 11/20/21at 13:12; Start 11/20/21 at 11:20; Stop 11/20/21 at 11:20; Status DC Fentanyl Citrate (Fentanyl 2ml Vial) 25 mcg PRN Q5MIN PRN IVP MILD PAIN 1-3; Start 11/20/21 at 11:45; Stop 11/20/21 at 20:00 Fentanyl Citrate (Fentanyl 2ml Vial) 50 mcg PRN Q5MIN PRN IVP MODERATE PAIN 4- 6; Start 11/20/21 at 11:45; Stop 11/20/21 at 20:00 Morphine Sulfate (Morphine Sulfate) 1 mg PRN Q10MIN PRN IVP SEVERE PAIN 7-10; Start 11/20/21 at 11:45; Stop 11/20/21 at 20:00 Ringer's Solution 1,000 ml @ 30 mls/hr Q24H IV Last administered on 11/20/21at 11:45; Start 11/20/21 at 11:45; Stop 11/20/21 at 23:44 Hydromorphone HCl (Dilaudid) 0.5 mg PRN Q10MIN PRN IVP SEVERE PAIN 7-10, 2nd CHOICE; Start 11/20/21 at 11:45; Stop 11/20/21 at 20:00 Prochlorperazine Edisylate (Compazine) 5 mg PACU PRN PRN IVP NAUSEA, MRX1; Start 11/20/21 at 11:45; Stop 11/20/21 at 20:00 Cefazolin Sodium/ Dextrose 50 ml @ As Directed STK-MED ONCE IV ; Start 11/20/21 at 12:14; Stop 11/20/21 at 12:14; Status DC Rocuronium [place] (Zemuron) 50 mg STK-MED ONCE .ROUTE ; Start 11/20/21 at 12:59; Stop 11/20/21 at 12:59; Status DC Hydromorphone HCl (Dilaudid) 2 mg STK-MED ONCE .ROUTE ; Start 11/20/21 at 12:59; Stop 11/20/21 at 12:59; Status DC Glycopyrrolate (Robinul) 1 mg STK-MED ONCE .ROUTE ; Start 11/20/21 at 13:21; Stop 11/20/21 at 13:21; Status DC Active Scripts Active Reported Fluoxetine Hcl 40 Mg Capsule 1 Cap PO DAILY Phentermine Hcl 37.5 Mg Capsule 1 Cap PO [id number] Allergies Allergies: Coded Allergies: Penicillins (Verified Allergy, Intermediate, HIVES, 12/24/16) ROS General: No: Chills, Night Sweats, Fatigue, Malaise, Appetite, Other PSYCHOLOGICAL ROS: No: Anxiety, Behavioral Disorder, Concentration difficultie, Decreased libido, Depression, Disorientation, Hallucinations, Hostility, Irritablity, Memory difficulties, Mood Swings, Obsessive thoughts, Physical abuse, Sexual abuse, Sleep disturbances, Suicidal ideation, Other Eyes: No Blurry vision, No Decreased vision, No Double vision, No Dry eyes, No Excessive tearing, No Eye Pain, No Itchy Eyes, No Loss of vision, No Photophobia, No Scotomata, No Uses contacts, No Uses glasses, No Other HEENT: No: Heacaches, Visual Changes, Hearing change, Nasal congestion, Nasal discharge, Oral lesions, Sinus pain, Sore Throat, Epistaxis, Sneezing, Snoring, Tinnitus, Vertigo, Vocal changes, Other Cardiovascular: No Chest Pain, No Palpitations, No Orthopnea, No Paroxysmal Noc. Dyspnea, No Edema, No Lt Headedness, No Other Gastrointestinal: Yes Nausea, Yes Abdominal Pain Genitourinary: No Dysuria, No Frequency, No Incontinence, No Hematuria, No Retention, No Discharge, No Urgency, No Pain, No Flank Pain, No Other, No , No , No , No , No , No , No Musculoskeletal: No Gait Disturbance, No Joint Pain, No Joint Stiffness, No Joint Swelling, No Muscle Pain, No Muscular Weakness, No Pain In:, No Swelling In:, No Other Neurological: No Behavorial Changes, No Bowel/Bladder ControlChng, No Confusion, No Dizziness, No Gait Disturbance, No Headaches, No Impaired Coord/balance, No Memory Loss, No Numbness/Tingling, No Seizures, No Speech Problems, No Tremors, No Visual Changes, No Weakness, No Other Skin: No Dry Skin, No Eczema, No Hair Changes, No Lumps, No Mole Changes, No Mottling, No Nail Changes, No Pruritus, No Rash, No Skin Lesion Changes, No Other, No Acne Physical Exam General: Alert, Oriented X3, Cooperative HEENT: Atraumatic, PERRLA Lungs: Clear to auscultation Abdomen: Soft (Mildly tender in the right upper quadrant with palpation) Extremities: No clubbing, No cyanosis Skin: No rashes Neuro: Normal speech Vitals VITALS Vital Signs Date Time Temp Pulse Resp B/P (MAP) Pulse Ox O2 Delivery O2 Flow Rate FiO2 11/20/21 11:00 98.2 68 18 107/71 (83) 97 Room Air 98.2 Labs Labs Laboratory Tests Test 11/20/21 01:22 11/20/21 02:29 White Blood Count 8.9 x10^3/uL (4.0-11.0) Red Blood Count 4.96 x10^6/uL (4.30-5.70) Hemoglobin 15.8 g/dL (13.0-17.5) Hematocrit 45.7 % (39.0-53.0) Mean Corpuscular Volume 92 fL (79-100) Mean Corpuscular Hemoglobin 32 pg (25-35) Mean Corpuscular Hemoglobin Concent 35 g/dL (31-37) Red Cell Distribution Width 13.3 % (11.5-14.5) Platelet Count 220 x10^3/uL (140-400) Neutrophils (%) (Auto) 73 % (31-73) Lymphocytes (%) (Auto) 15 % (24-48) Monocytes (%) (Auto) 8 % (0-9) Eosinophils (%) (Auto) 4 % (0-3) Basophils (%) (Auto) 0 % (0-3) Neutrophils # (Auto) 6.5 x10^3/uL (1.8-7.7) Lymphocytes # (Auto) 1.3 x10^3/uL (1.0-4.8) Monocytes # (Auto) 0.7 x10^3/uL (0.0-1.1) Eosinophils # (Auto) 0.4 x10^3/uL (0.0-0.7) Basophils # (Auto) 0.0 x10^3/uL (0.0-0.2) Sodium Level 143 mmol/L (136-145) Potassium Level 4.3 mmol/L (3.5-5.1) Chloride Level 106 mmol/L (98-107) Carbon Dioxide Level 25 mmol/L (21-32) Anion Gap 12 (6-14) Blood Urea Nitrogen 28 mg/dL (8-26) Creatinine 1.0 mg/dL (0.7-1.3) Estimated GFR (Cockcroft-Gault) 79.1 BUN/Creatinine Ratio 28 (6-20) Glucose Level 111 mg/dL (70-99) Calcium Level 9.7 mg/dL (8.5-10.1) Total Bilirubin 0.5 mg/dL (0.2-1.0) Aspartate Amino Transf (AST/SGOT) 18 U/L (15-37) Alanine Aminotransferase (ALT/SGPT) 34 U/L (16-63) Alkaline Phosphatase 72 U/L (46-116) Troponin I High Sensitivity 7 ng/L (4-75) Total Protein 7.5 g/dL (6.4-8.2) Albumin 4.1 g/dL (3.4-5.0) Albumin/Globulin Ratio 1.2 (1.0-1.7) Lipase 96 U/L (73-393) SARS-CoV-2 Antigen (Rapid) Negative (NEGATIVE) Laboratory Tests Test 11/20/21 01:22 11/20/21 02:29 White Blood Count 8.9 x10^3/uL (4.0-11.0) Red Blood Count 4.96 x10^6/uL (4.30-5.70) Hemoglobin 15.8 g/dL (13.0-17.5) Hematocrit 45.7 % (39.0-53.0) Mean Corpuscular Volume 92 fL (79-100) Mean Corpuscular Hemoglobin 32 pg (25-35) Mean Corpuscular Hemoglobin Concent 35 g/dL (31-37) Red Cell Distribution Width 13.3 % (11.5-14.5) Platelet Count 220 x10^3/uL (140-400) Neutrophils (%) (Auto) 73 % (31-73) Lymphocytes (%) (Auto) 15 % (24-48) Monocytes (%) (Auto) 8 % (0-9) Eosinophils (%) (Auto) 4 % (0-3) Basophils (%) (Auto) 0 % (0-3) Neutrophils # (Auto) 6.5 x10^3/uL (1.8-7.7) Lymphocytes # (Auto) 1.3 x10^3/uL (1.0-4.8) Monocytes # (Auto) 0.7 x10^3/uL (0.0-1.1) Eosinophils # (Auto) 0.4 x10^3/uL (0.0-0.7) Basophils # (Auto) 0.0 x10^3/uL (0.0-0.2) Sodium Level 143 mmol/L (136-145) Potassium Level 4.3 mmol/L (3.5-5.1) Chloride Level 106 mmol/L (98-107) Carbon Dioxide Level 25 mmol/L (21-32) Anion Gap 12 (6-14) Blood Urea Nitrogen 28 mg/dL (8-26) Creatinine 1.0 mg/dL (0.7-1.3) Estimated GFR (Cockcroft-Gault) 79.1 BUN/Creatinine Ratio 28 (6-20) Glucose Level 111 mg/dL (70-99) Calcium Level 9.7 mg/dL (8.5-10.1) Total Bilirubin 0.5 mg/dL (0.2-1.0) Aspartate Amino Transf (AST/SGOT) 18 U/L (15-37) Alanine Aminotransferase (ALT/SGPT) 34 U/L (16-63) Alkaline Phosphatase 72 U/L (46-116) Troponin I High Sensitivity 7 ng/L (4-75) Total Protein 7.5 g/dL (6.4-8.2) Albumin 4.1 g/dL (3.4-5.0) Albumin/Globulin Ratio 1.2 (1.0-1.7) Lipase 96 U/L (73-393) SARS-CoV-2 Antigen (Rapid) Negative (NEGATIVE) Assessment/Plan Assessment/Plan 51-year-old male with suspected calculus cholecystitis. Plan proceed to the operating for laparoscopic cholecystectomy. The details and risks of surgery were discussed with the patient. He understands and would like to proceed. CLIFF STARKS MD November 20, 2021 13:29
[2021-11-20] MEDS ORDERED: oxyCODONE/APAP 5/325 1 TAB TABLET PO PRN ×2 (13:30→13:45)
--- NOTE | 2021-11-20 13:31 | NUR ---
Pt post op transfer to room 418. Report called to [facility]. All belongings brought down to room by this account underwriter.
--- NOTE | 2021-11-20 14:51 | NUR ---
Pt transferred from PACU to room 418 at 1615. Denies pain upon transfer. He was eating ice and asked if he could go home tonight. I educated him on making sure he can eat, walk, and use the BR without issues then possibly he could get discharged this evening. He was ok
[2021-11-20] MEDS ORDERED: OXYC1TAB15 PO (16:14)
--- NOTE | 2021-11-20 17:04 | NUR ---
Pt requested to discharge, said he is not hurting and would like to go home. This underwriter spoke with Dr. Louise and he said pt can return home if he was able to eat, drink and move without pain. Pt did all the above and said that he does not hurt, just some discomfort. Dr. Carlson was spoke to and he agreed to do discharge orders. Pt was educated on medications that he were to cont with and medication that was sent to pharmacy. He was educated on surgical incisions with the dressings and to not lift, pull or push heavy objects. Pt to f/u with Dr. Louise in 2 weeks, phone number was given and directed to call tomorrow, Eric the 21 of November. He is aware and agreed to all education. At 1700 IV was removed and he ambulated downstairs with staff to private vehicle with his father taking him home.
[2021-11-20] MEDS ORDERED: SENNOSIDES/DOCUSATE 8.6/50MG TABLET. PO SCH (21:00)
[2021-11-21] MEDS ORDERED: FLUoxetine HCL 20 MG CAPSULE PO SCH (09:00)
--- NOTE | 2021-11-21 09:01 | EKG ---
[facility] [address] [place] [address] Test Date: 2021-11-20 Test Time: 01:03:36 Pat Name: ETHAN LEON Department: Room: 418 Gender: M [employer]igation Worker: : 1970 Requested By: YANI SALINAS Order Number: [id number] Reading MD: Wilber Hyde MD Measurements Intervals [place] Rate: 55 P: 27 [place]: 182 QRS: -4 QRSD: 96 T: 23 QT: 406 QTc: 390 Interpretive Statements SINUS RHYTHM Electronically Signed On 11-21-2021 11:00:34 CDT by Wilber Hyde MD
== END 2021-11-20 17:10 | disposition home or self-care (01) | DRG 419 ==
LOC: ER 00:06 → ED HOLD 02:55 → 5 NORTH 05:45 → 4 NORTH 14:15
PROVIDERS: ADMIT Internal Medicine; ATTEND Internal Medicine
PROC: BF101ZZ Fluoroscopy of Bile Ducts using Low Osmolar Contrast (ICD-10-PCS; 2021-11-20)
PROC: 0FT44ZZ Resection of Gallbladder, Percutaneous Endoscopic Approach (ICD-10-PCS; principal; 2021-11-20 12:00)
DX: K80.01 Calculus of gallbladder with acute cholecystitis with obstruction (principal); Z98.84 Bariatric surgery status; E66.01 Morbid (severe) obesity due to excess calories; F32.9 Major depressive disorder, single episode, unspecified; F41.9 Anxiety disorder, unspecified; Z68.30 Body mass index [BMI] 30.0-30.9, adult; Z88.0 Allergy status to penicillin; Z20.822 Contact with and (suspected) exposure to COVID-19
CPT/HCPCS: 36415; 76705; 80053; 83690; 84484; 85025; 87426; 93005; A4213; A4223; A4314; A4364; A4452; A4657; A4930; A6219; C1887; J0690; J0744; J1100; J1170; J2250; J2270; J2405; J2704; J2710; J3010; J3490; J7120; Q9967; U0003; G0378